=== PATIENT | male | born 1945 | race Caucasian/White ===

== ENCOUNTER → 2022-08-10 | Outpatient (CLI) | payer OTHER ==
--- NOTE | 2022-08-10 18:03 | Diagnostic Imaging Report ---
EXAMINATION: Right knee radiograph, 4 views. COMPARISON: None. HISTORY: 77-year-old male, right knee pain. FINDINGS: There is mild medial and moderate patellofemoral compartment joint space loss. There is no knee joint effusion. The patella is normally positioned. There is no identified acute fracture. 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 Dictated by: Dictated on workstation # [id number]
== END ==
LOC: ORTHO 13:01
PROVIDERS: ATTEND Orthopaedic Surgery
DX: M17.11 Unilateral primary osteoarthritis, right knee (principal)
CPT/HCPCS: 20610; 73564; G0463; 99213